=== PATIENT | female | born 1950 | race Caucasian/White ===

== ENCOUNTER 2017-07-17 12:04 | Outpatient (CLI) | payer MEDICARE, BC | END 2017-07-17 12:05 | disposition home or self-care (01) | LOC: BICMAMMO 12:04 | PROVIDERS: ATTEND Internal Medicine | DX: Z12.31 Encounter for screening mammogram for malignant neoplasm of breast (principal); Z80.3 Family history of malignant neoplasm of breast | CPT/HCPCS: 77063; 77067 ==

== ENCOUNTER 2017-08-13 21:07 | Emergency (ER) | payer MEDICARE, OTHER ==
[2017-08-13 21:41] LABS: #Basophils 0.1 thou/uL (0.0-0.2); #Eosinphils 0.3 thou/uL (0.0-0.7); #Lymphocytes 3.1 thou/uL (1.20-3.40); #Monocytes 0.5 thou/uL (0.11-0.59); #Neutrophils 3.6 thou/uL (1.40-6.50); %Basophils 0.8 % (0.0-1.0); %Eosinophils 3.9 % (0.0-10.0); %Lymphocytes 40.7 % (21.0-51.0); %Monocytes 6.6 % (0.0-10.0); %Neutrophils 48.1 % (42.0-75.0); Hemoglobin 13.1 g/dL (12.0-16.0); Mean Corpuscular HGB CONC 34.7 g/dL (32.0-36.0); Mean Corpuscular Hemoglobin 32.2 pg (27.0-31.0); Mean Corpuscular Volume 92.7 fl (81.0-99.0); Mean Platelet Volume 7.2 fL (7.4-10.4); Platelet Count 217 thou/uL (130-400); RBC Distribution Width 11.7 % (11.5-14.5); Red Blood Cell (RBC) Count 4.07 mill/uL (4.20-5.40); White Blood Cell (WBC) Count 7.5 thou/uL (4.8-10.8)
[2017-08-13 22:01] LABS: ALT (SGPT) 17 U/L (8-55); AST (SGOT) 18 U/L (5-34); Albumin 3.6 g/dL (3.4-4.8); Alkaline Phosphatase 65 U/L (40-150); Anion Gap 13 mmol/L (10-20); BUN (Urea Nitrogen) 15 mg/dL (9.8-20.1); Bilirubin, Total 0.4 mg/dL (0.2-1.2); Calc. Creatinine Clearance 0 mL/min (70-130); Carbon Dioxide 24 mmol/L (23-31); Chloride 107 mmol/L (98-107); Estimated GFR-MDRD 79; Globulin 2.2 g/dL (2.4-3.5); Glucose 95 mg/dL (80-115); Potassium 3.6 mmol/L (3.5-5.1); Protein, Total 5.8 g/dL (6.0-8.3); Sodium 140 mmol/L (136-145)
[2017-08-13 22:05] LABS: CKMB 0.8 ng/mL (0-6.6); Troponin I 0.012 ng/mL (< 0.028)
--- NOTE | 2017-08-26 13:12 | EKG ---
Test Reason : HIGH BP Blood Pressure : / mmHG Vent. Rate : 065 BPM Atrial Rate : 065 BPM P-R Int : 136 ms QRS Dur : 086 ms QT Int : 420 ms P-R-T Axes : 069 044 038 degrees QTc Int : 436 ms Normal sinus rhythm Normal ECG Confirmed by PAM FRANKS [id number]), technical editor JOSEMANUEL HERNANDEZ ([id number] on 08/26/2017 1:11:43 PM Referred By: Confirmed By:PAM FRANKS
== END 2017-08-13 22:44 | disposition home or self-care (01) ==
LOC: ERS 21:07
DX: I10 Essential (primary) hypertension (principal); E03.9 Hypothyroidism, unspecified; Z79.899 Other long term (current) drug therapy
CPT/HCPCS: 36415; 80053; 82553; 84484; 85025; 93005

== ENCOUNTER 2018-03-16 09:36 | Outpatient (CLI) | payer MEDICARE ==
--- NOTE | 2018-03-16 10:40 | ULT ---
THYROID SONOGRAM: History: Hypothyroidism. FINDINGS: Right thyroid lobe measures to 3.9 cm. Near the superior pole there is a homogeneous solid slightly l obular 1.3 x 1.2 x 0.7 cm mass. At the inferior pole there is a 2.0 x 1.3 x 1.0 cm complex mass with central cystic component. Isthmus is 0.2 cm. Left thyroid lobe 3.0 cm with a normal appearance. IMPRESSION: Nodules within the right thyroid lobe as detailed above. Complex nodule at the inferior pole measures up to 2.0 cm and is somewhat complex. Please consider ENT evaluation and potential cytologic evaluat ion with FNA. Sonographic guidance could be used if needed. POS: PRAVEENA
== END 2018-03-16 09:37 | disposition home or self-care (01) ==
LOC: BICULT 09:36
PROVIDERS: ATTEND Physician Assistant
DX: E03.9 Hypothyroidism, unspecified (principal); E04.2 Nontoxic multinodular goiter
CPT/HCPCS: 76536

== ENCOUNTER 2019-05-01 09:18 | Outpatient (CLI) | payer MEDICARE ==
--- NOTE | 2019-05-01 10:58 | BD ---
DEXA BONE DENSITY: HISTORY: A 69-year-old female. Evaluate for osteoporosis. COMPARISON: 02/17/2006 FINDINGS: LUMBAR SPINE BMD (g/cm2) T-SCORE Z-SCORE L1 0.994 0.0 2.0 L2 1.055 0.2 2.4 L3 1.125 0.4 2.6 L4 1.133 0.7 3.0 TOTAL 1.082 0.3 2.5 On 02/17/2006, 1.165 and 1.1. BMD change versus baseline is -7.1%. BMD change versus previous is -7.1%. Femoral neck WHO classification of 0.581, -2.4, -0 BMD (g/cm2) T-SCORE Z-SCORE FEMORAL NECK 0.581 -2.4 -0.5 TOTAL 0.744 -1.6 -0.1 On 02/17/2005, 0.983 and 0.3. BMD change versus baseline is -24.3%. BMD change versus previous is -24.3%. IMPRESSION: 1. Lumbar spine WHO classification is normal. Fracture risk is not increased. 2. Femoral neck WHO classification is osteopenia. Ten year fracture risk for a major osteoporotic fra cture is 14% and for a hip fracture is 3.5%. POS: OFF
== END 2019-05-01 09:19 | disposition home or self-care (01) ==
LOC: BICMAMMO 09:18
PROVIDERS: ATTEND Family Medicine
DX: M81.0 Age-related osteoporosis without current pathological fracture (principal); M85.859 Other specified disorders of bone density and structure, unspecified thigh
CPT/HCPCS: 77080